=== PATIENT | female | born 1995 | race Caucasian/White ===

== ENCOUNTER → 2021-02-20 | Outpatient (CLI) | payer OTHER ==
[2021-02-20 13:36] LABS: HEMATOCRIT 30.2 % (36.0-47.0); HEMOGLOBIN 9.5 g/dl (12.0-15.5); MEAN CORPUSCULAR HEMOGLOBIN 28.1 pg (27.0-33.0); MEAN CORPUSCULAR HGB CONC 31.5 g/dl (32.0-36.5); MEAN CORPUSCULAR VOLUME 89.3 fl (80.0-96.0); PLATELET COUNT, AUTOMATED 195 10^3/uL (150-450); RED BLOOD COUNT 3.38 10^6/uL (4.00-5.40); WHITE BLOOD COUNT 8.7 10^3/uL (4.0-10.0)
== END ==
LOC: M PLALAB 10:57
PROVIDERS: ATTEND Advanced Practice Midwife
DX: Z36.89 Encounter for other specified antenatal screening (principal); Z3A.31 31 weeks gestation of pregnancy
CPT/HCPCS: 36415; 82950; 85027; 86850; 86900; 86901; J2790

== ENCOUNTER → 2021-02-23 | Outpatient (REF) | payer OTHER ==
[2021-02-23 22:01] LABS: GC DNA AMPLIFICATION NEGATIVE (NEGATIVE)
== END ==
LOC: M SFHCWAGY 18:02
PROVIDERS: ATTEND Advanced Practice Midwife
DX: Z34.83 Encounter for supervision of other normal pregnancy, third trimester (principal); Z3A.31 31 weeks gestation of pregnancy
CPT/HCPCS: 87491; 87591; 90384; 96372; G0463

== ENCOUNTER → 2021-02-28 | Outpatient (CLI) | payer OTHER ==
--- NOTE | 2021-03-01 06:04 | REP ---
INDICATION: PREG, F/U ANATOMY COMPARISON: None. TECHNIQUE: Transabdominal obstetrical ultrasound with color Doppler evaluation. FINDINGS: Examination demonstrates a single live intrauterine in cephalic presentation. motion is identified by technologist. Placenta is noted anterior/left lateral and grade 1 without evidence for placenta previa or abruption. Amniotic fluid volume is normal. Cervix measures 4.9 cm in length and appears closed.. Selected gestational age: 34 weeks 5 days with FELIPE 04/06/2021. Gestational age by current measurements 34 weeks 5 days with FELIPE 04/06/2021. FHR equals 132 beats per minute. ANA: 21.7 cm Umbilical artery SD ratio: 2.04 Estimated weight 2561 grams (52ndpercentile). Anatomical assessment demonstrates normal structures including cranium, facial features, lungs,, diaphragm, stomach, abdominal wall, bladder and 3 vessel cord. Limited evaluation of the spine due to positioning and advanced age. IMPRESSION: Single live intrauterine in cephalic presentation demonstrating appropriate interval growth. Limited evaluation of the spine again noted due to advanced age and positioning. <Electronically signed by Jose Galvin > 03/01/21 0600
== END ==
LOC: M RAD 15:51 → EDUNIT# 16:00
PROVIDERS: ATTEND Advanced Practice Midwife
DX: Z36.2 Encounter for other antenatal screening follow-up (principal); Z3A.34 34 weeks gestation of pregnancy

== ENCOUNTER → 2021-03-24 | Outpatient (CLI) | payer OTHER ==
--- NOTE | 2021-03-24 16:09 | REP ---
INDICATION: PREG, GROWTH AND POSITION. COMPARISON: 02/28/2021. TECHNIQUE: Real-time sonographic evaluation of the gravid uterus performed. FINDINGS: Estimated gestational age is38 weeks 1 day, EDC 04/06/2021. Today's measurements indicate appropriate growth. Presentation: Cephalic Placenta anterior, grade 2, without evidence of placenta previa. heart rate is recorded at 131 beats per minute. Amniotic fluid is subjectively normal. ANA 12.4, normal range 7.3-23.7. Biophysical profile score 8/8. SD ratio umbilical artery 2.05, normal 1.54-3.35. RI 0.51, normal 0.42-0.70. Closed cervical length is measured at 3.6 cm. Biometry chart: BPD: 91 mm, 37 weeks 0 days, 34th percentile. HC: 333 mm, 38 weeks 0 days, 47th percentile AC: 348 mm, 38 weeks 5 days, 58th percentile Femur length: 71 mm, 36 weeks 2 days, 23rd percentile HC to AC ratio: 0.96, normal range 8.90-1.09. Estimated weight: 3272g, 56th percentile. Visualized anatomy today includes cranium, facial profile, four-chamber heart, left ventricular outflow tract, stomach, three-vessel cord, left kidney, bladder. The spine is still not well visualized due to position. IMPRESSION: Viable single intrauterine gestation as above. <Electronically signed by Júnior Mack > 03/24/21 [id number]
== END ==
LOC: M RAD 14:54
PROVIDERS: ATTEND Obstetrics & Gynecology
DX: Z34.83 Encounter for supervision of other normal pregnancy, third trimester (principal); Z36.2 Encounter for other antenatal screening follow-up; Z3A.38 38 weeks gestation of pregnancy

== ENCOUNTER → 2021-03-28 | Outpatient (REF) | payer OTHER | LOC: M SFHCWAGY 17:27 | PROVIDERS: ATTEND Obstetrics & Gynecology | DX: Z34.83 Encounter for supervision of other normal pregnancy, third trimester (principal) ==

== ENCOUNTER 2021-04-15 07:40 | Inpatient (IN) | payer OTHER ==
[2021-04-15] VITALS (7 sets, daily range): BP systolic 91–113; BP diastolic 57–74
[~2021-04-15] VITALS: Ht 165.1 cm; Wt 73.5 kg
[2021-04-15] MEDS ORDERED: ASPI81CH33 PO (08:30)
[2021-04-15] MEDS ORDERED: HOME MED LIST COMPLETE! XX SCH (08:30)
--- NOTE | 2021-04-15 08:31 | HPEPDOC ---
Obstetrical History & Physical General Date of Admission Apr 15, 2021 at 07:40 History of Present Illness 26 yo female at 40 0/7 weeks by LMP c/w 8 week ultrasound (EDC=) presents for labor induction. Occasional contractions. no leakage of fluid. Information Provided By: Patient Age: 26 : 5 Term: 2 Pre-term: 0 Abortions: 2 Livin Care Care: None Dating Final EDC: Apr 15, 2021 Final EDC for Daily Update: Apr 15, 2021 Final EDC by: LMP, 1st trimester (US) Past Medical History Past Obstetrical History : Past Obstetrical History: Multigravida Past Medical History Medical History OB HX: TSVD x 2 Med hx: Migraines Anxiety/depression Surg: Excision of rudimentary uterine horn Social History Marital Status: Family situation: Spouse/partner home * Smoker: non-smoker Physical Examination Physical Examination GENERAL: Alert and oriented times three. BREAST: . ABDOMEN: Gravid and non-tender to touch. FETUS: Is vertex (VTX) by sterile vaginal examination (SVE), fetus is vertex (VTX) by Aleksander. HEART RATE: Regular rate and rhythm. LUNGS: Clear to auscultation (CTA). EXTREMITIES: No edema. No clonus. Deep tendon reflexes (DTRs) + . Pertinent Laboratoy Data Blood Type: A- Group B Streptococcus: Negative Assessment Variability: Moderate Accelerations: Positive Decelerations: None Tocometer Contractions: No Assessment/Plan Assessment Pt is a 26-year-old (G)5 para (P)2at 40+0 weeks by LMP c/w 8-week ultrasound presents to Labor and Delivery for induction. Plan Admit and orient. Exhibit Preparator and consent. Diet: reg. Group B Streptococcus (GBS) negative Labs and intravenous (IV) per unit protocol. Anticipate [normal spontaneous delivery () C-S as appropriate. JEAN GARCIA MD Apr 15, 2021 08:31
[2021-04-15 08:39] LABS: HEMATOCRIT 29.3 % (36.0-47.0); MEAN CORPUSCULAR HEMOGLOBIN 25.4 pg (27.0-33.0); MEAN CORPUSCULAR HGB CONC 30.7 g/dl (32.0-36.5); MEAN CORPUSCULAR VOLUME 82.5 fl (80.0-96.0); PLATELET COUNT, AUTOMATED 182 10^3/uL (150-450); RED BLOOD COUNT 3.55 10^6/uL (4.00-5.40); WHITE BLOOD COUNT 7.9 10^3/uL (4.0-10.0)
[2021-04-15] MEDS ORDERED: LR 1,000 ML IV ONE (10:10)
[2021-04-15] MEDS: miSOPROStol 50MCG 1/2 TABLET SL SCH ×3 (10:34→20:58)
[2021-04-15] MEDS: LR 1,000 ML IV SCH ×2 (11:35→17:41)
[2021-04-16] MEDS ORDERED: BUTORPHANOL 2 MG/ML INJ (J0595) IV ONE (00:05)
[2021-04-16] MEDS ORDERED: PROMETHAZINE INJ 25 MG/ML VIAL (J2550) IV ONE (00:05)
[2021-04-16] MEDS ORDERED: LIDOCAINE 1% MDV 20ML VIAL As Ordered ONE (00:30)
[2021-04-16 00:53] VITALS: BP 105/69
[2021-04-16] MEDS ORDERED: METHYLERGONOVINE MALEATE 0.2 MG TAB PO PRN (01:05)
[2021-04-16] MEDS ORDERED: ACETAMINOPHEN TAB 650MG DOSE (2X325MG) PO PRN (01:05)
[2021-04-16] MEDS ORDERED: ONDANSETRON 4MG/2ML VIAL IV PRN (01:05)
[2021-04-16] MEDS ORDERED: LIDOCAINE 1% MDV 20ML VIAL INFIL ONE (01:05)
[2021-04-16] MEDS ORDERED: MEASLES,MUMPS,RUBELLA VACCINE INJ (MMR-II) (90707) SC SCH (01:05)
[2021-04-16] MEDS ORDERED: DOCUSATE SODIUM 100MG CAPSULE PO PRN (01:05)
[2021-04-16] MEDS ORDERED: RHOGAM 300 MCG (1500 IU) INJ (J2790) IM SCH (01:05)
[2021-04-16] MEDS ORDERED: OXYTOCIN DRIP 30 UNITS in IV 1 EA IV ONE (01:05)
[2021-04-16 01:06] VITALS: BP 115/72
--- NOTE | 2021-04-16 01:20 | DNPDOC ---
[facility] Delivery Note Delivery Note DATE OF DELIVERY: April 16, 2021 PREDELIVERY DIAGNOSIS: 39-4/7 weeks' gestation, induction. POST DELIVERY DIAGNOSIS: Delivered. PROCEDURE: Spontaneous vaginal delivery. SLABBER: Dr. Jean Garcia MD ANESTHESIA: None. ESTIMATED BLOOD LOSS: 300 mL. FINDINGS: 8 pound 12 ounce female , Score 8/9 DELIVERY SUMMARY: Patient is a 26-year-old 3 now para 3 who was admitted to labor and delivery for induction of labor. She received 3 doses of Misoprostol. She had spontaneous rupture of membranes. Moderate meconium noted. After a 10-minute second stage of labor she had spontaneous delivery of an 8 pound 12 ounce female infant. No nuchal cord. Shoulders delivered with ease. The was handed to the mother. The cord was clamped and cut. The placenta delivered spontaneously and appeared to be intact. Patient received IV Pitocin immediately after delivery of the placenta. A second-degree perineal laceration was repaired with 2-0 chromic under local anesthesia in the usual fashion. Sponge and needle counts were correct. JEAN GARCIA MD Apr 16, 2021 01:20
[2021-04-16 01:21] VITALS: BP 102/75
[2021-04-16 02:10] VITALS: BP 110/69
[2021-04-16] MEDS ORDERED: DIBUCAINE 1% OINTMENT 30GM TOP PRN (05:25)
[2021-04-16 05:27] VITALS: BP 101/67
[2021-04-16] MEDS: IBUPROFEN 800 MG TAB PO PRN (05:36)
[2021-04-16] MEDS: PRENATAL VITAMINS CHEWABLE TABLET PO SCH (07:37)
[2021-04-16] MEDS: ACETAMINOPHEN 500 MG TAB PO PRN ×2 (07:38→17:55)
[2021-04-16] MEDS: IBUPROFEN 600MG TAB PO PRN ×2 (13:10→20:54)
[2021-04-16 18:06] VITALS: BP 107/68
[2021-04-17 06:00] VITALS: BP 123/64
[2021-04-17] MEDS ORDERED: IBUP80TA PO (07:40)
[2021-04-17] MEDS ORDERED: ACET-683 PO (07:40)
[2021-04-17] MEDS: PRENATAL VITAMINS CHEWABLE TABLET PO SCH (08:17)
[2021-04-17] MEDS: ACETAMINOPHEN 500 MG TAB PO PRN (08:20)
[2021-04-17] MEDS: IBUPROFEN 800 MG TAB PO PRN (12:23)
== END 2021-04-17 13:00 | disposition home or self-care (01) | DRG 807 ==
LOC: M LDI 07:40 → M OBS 04-16 02:12
PROVIDERS: ADMIT Specialist; ATTEND Specialist
PROC: 3E0DXGC Introduction of Other Therapeutic Substance into Mouth and Pharynx, External Approach (ICD-10-PCS; 2021-04-15)
PROC: 10E0XZZ Delivery of Products of Conception, External Approach (ICD-10-PCS; principal; 2021-04-16)
PROC: 0KQM0ZZ Repair Perineum Muscle, Open Approach (ICD-10-PCS; 2021-04-16)
DX: O70.0 First degree perineal laceration during delivery (principal); Z37.0 Single live birth; Z3A.40 40 weeks gestation of pregnancy; O70.1 Second degree perineal laceration during delivery

== ENCOUNTER → 2022-05-21 | Outpatient (CLI) | payer OTHER ==
[~2022-05-21] MED LIST: ACET-683 PO; ASPI81CH33 PO; IBUP80TA PO
== END ==
LOC: M WHC 10:29
PROVIDERS: ATTEND Specialist
DX: R92.8 Other abnormal and inconclusive findings on diagnostic imaging of breast (principal); N63.20 Unspecified lump in the left breast, unspecified quadrant

== ENCOUNTER → 2022-11-29 | Outpatient (CLI) | payer OTHER ==
[2022-11-29 14:04] LABS: BASO # 0.1 10^3/uL (0.0-0.2); BASO % 0.9 % (0.0-1.0); EOS # 0.1 10^3/uL (0.0-0.5); EOS % 1.7 % (0.0-3.0); LYMPH # 1.5 10^3/uL (1.5-5.0); LYMPH % 26.8 % (24.0-44.0); MEAN CORPUSCULAR HEMOGLOBIN 28.6 pg (27.0-33.0); MEAN CORPUSCULAR HGB CONC 30.8 g/dl (32.0-36.5); MEAN CORPUSCULAR VOLUME 92.9 fl (80.0-96.0); MONO # 0.5 10^3/uL (0.0-0.8); MONO % 9.5 % (2.0-8.0); NEUTROPHILS # 3.3 10^3/uL (1.5-8.5); NEUTROPHILS % 60.7 % (36.0-66.0); PLATELET COUNT, AUTOMATED 200 10^3/uL (150-450); WHITE BLOOD COUNT 5.5 10^3/uL (4.0-10.0)
[2022-11-29 14:35] LABS: FERRITIN 3.6 NG/ML (7.3-270.7); FREE T4 0.93 NG/DL (0.89-1.76); THYROID STIMULATING HORMONE 1.096 uIU/ML (0.55-4.78)
[2022-11-29 14:37] LABS: FOLATE > 24.0 NG/ML (>5.4); IRON (FE) 86 UG/DL (50-170)
[2022-11-29 14:39] LABS: ALBUMIN 3.9 G/DL (3.2-5.2); ALKALINE PHOSPHATASE 42 U/L (46-116); ALT/SGPT 21 U/L (7.0-40); AST/SGOT 19 U/L (<34); BILIRUBIN,TOTAL 0.6 MG/DL (0.3-1.2); BLOOD UREA NITROGEN 23 MG/DL (9-23); CALCIUM LEVEL 8.4 MG/DL (8.5-10.1); CARBON DIOXIDE LEVEL 29 MMOL/L (20-31); CHLORIDE LEVEL 105 MMOL/L (98-107); CREATININE FOR GFR 0.82 MG/DL (0.55-1.30); GLOMERULAR FILTRATION RATE > 60.0 (>60); GLUCOSE, FASTING 80 MG/DL (60-100); PERCENT SATURATION 20.6 % (13.2-45.0); POTASSIUM SERUM 3.9 MMOL/L (3.5-5.1); SODIUM LEVEL 139 MMOL/L (136-145); TOTAL IRON BINDING CAPACITY 418 UG/DL (250-425); TOTAL PROTEIN 6.8 G/DL (5.7-8.2); VITAMIN B12 LEVEL 429 PG/ML (211-911)
== END ==
LOC: M PLALAB 10:09
PROVIDERS: ATTEND Nurse Practitioner Adult Health
DX: D50.9 Iron deficiency anemia, unspecified (principal); F41.1 Generalized anxiety disorder